=== PATIENT | female | born 1990 | race Caucasian/White ===

== ENCOUNTER 2020-07-16 16:30 | Emergency (ER) | payer OTHER, SELFPAY ==
--- NOTE | ~2020-07-16 | XR_ITS ---
EXAMINATION: XR chest 2V EXAM DATE: 07/16/2020 19:22 INDICATION: Dizziness, weakness. TECHNIQUE: Frontal and lateral projections of the chest obtained and reviewed. There is no prior meghana dy for comparison. FINDINGS: The lungs are clear. There are no pleural effusions. The cardiomediastinal silhouette is within normal limits. There is no pneumothorax suspected. The bones and soft tissues are unremarkab le. IMPRESSION: No acute cardiopulmonary findings. Reviewed, dictated and finalized at location A. [facility] [employer] [employer]
[2020-07-16 16:45] VITALS: BP 138/92; PULSE 107; RESP 19; TEMP 36.7; O2SAT 100
--- NOTE | 2020-07-16 17:11 | ECG_ITS ---
Measurements Intervals [place] Rate: 92 P: 41 NC: 141 QRS: 2 QRSD: 91 T: -3 QT: 386 QTc: 479 Interpretive Statements SINUS RHYTHM POSSIBLE LEFT VENTRICULAR HYPERTROPHY MINIMAL Q WAVES- HIGH LATERAL LEADS NONSPECIFIC ST & T-WAVE ABNORMALITY- INF/LAT LEADS BASELINE ARTIFACT- I, II, AVR, AVL, AVF, V4 BORDERLINE ECG Electronically Signed On 07-16-2020 21:38:37 [employer] by Chadd Burns D.O.
--- NOTE | 2020-07-16 17:12 | ED.DIZZY ---
HPI - Dizziness General Chief Complaint: Dizziness <Caleb Aly DO - Last Filed: 07/16/20 18:55> Stated Complaint: Lightheaded/ dizziness <Caleb Aly DO - Last Filed: 07/16/20 18:55> Time Seen by Provider: 07/16/20 16:50 <Caleb Aly DO - Last Filed: 07/16/20 18:55> Source: patient, RN notes reviewed and old records reviewed <Caleb Aly DO - Last Filed: 07/16/20 18:55> History of Present Illness HPI Narrative: 30-year-old female presents to emergency department for intermittent lightheadedness since . Patient states she has never had this in the past before. Has not taken anything for symptoms so far. Patient states that the lightheadedness is worse with certain movements. Denies nausea or vomiting. No fever or chills. No chest pain or shortness of breath. Does report having some intermittent right-sided flank pain. No dysuria. Her last menstrual period was in April. <Caleb Aly DO - Last Filed: 07/16/20 18:55> Related Data Home Medications: Home Medications Medication Instructions Recorded Confirmed metformin 1,000 mg PO BID 07/16/20 <Caleb Aly DO - Last Filed: 07/16/20 18:55> Allergies/Adverse Reactions: Allergies Allergy/AdvReac Type Severity Reaction Status Date / Time No Known Allergies Allergy Verified 07/16/20 16:51 <Caleb Aly DO - Last Filed: 07/16/20 18:55> Review of Systems Review of Systems: Narrative: CONSTITUTIONAL: Denies fever, chills, or sweats. EYES: Denies visual changes, redness, or discharge. ENT: Denies rhinorrhea, congestion, sore throat, or otalgia. CARDIOVASCULAR: Denies chest pain, palpitations, or edema. RESPIRATORY: Denies cough or dyspnea. GASTROINTESTINAL: Denies abdominal pain, nausea, vomiting, or diarrhea. GENITOURINARY: Denies dysuria or hematuria. SKIN: Denies rash or itching. MUSCULOSKELETAL: Denies back pain, joint pain, or myalgia. NEUROLOGIC: Denies headache, numbness, or weakness. Reports dizziness PSYCHIATRIC: Denies anxiety or depression. <Caleb Aly DO - Last Filed: 07/16/20 18:55> All systems reviewed & are unremarkable except as noted in HPI and below (ROS) <Caleb Aly DO - Last Filed: 07/16/20 18:55> PMFSH Social History Social History: Social History Gender identity (if verbalized by the patient): Female <Caleb Aly DO - Last Filed: 07/16/20 18:55> Exam Narrative: Exam Narrative: GENERAL: Well-appearing, well-nourished, and in no acute distress. HEAD: Normocephalic, atraumatic. EYES: PERRLA and EOMI. ENT: Nares clear, no rhinorrhea or epistaxis. Mucous membranes moist. NECK: Supple. CHEST: Clear to auscultation. No respiratory distress. HEART: Regular rate and rhythm. No murmur heard. Normal peripheral pulses. ABDOMEN: Soft, nontender, nondistended, normal active bowel sounds. EXTREMITIES: Normal range of motion. No edema. SKIN: Warm, dry, no rash. NEURO: No focal deficits. Alert and oriented x3. Negative Middle Bass-Hallpike. PSYCH: Normal mood and affect. <Caleb Aly DO - Last Filed: 07/16/20 18:55> Course Course Emergency Course: 1824 -reevaluated patient, no new complaints. 1899 - care transferred, pending fluids, chest x-ray, and re-evaluation. <Caleb Aly DO - Last Filed: 07/16/20 18:55> Vital Signs Vital signs: Vital Signs Temperature 36.7 C 07/16/20 16:45 Pulse Rate 107 H 07/16/20 16:45 Respiratory Rate 19 07/16/20 16:45 Blood Pressure 138/92 H 07/16/20 16:45 Pulse Oximetry 100 07/16/20 16:45 Temperature 36.7 C 07/16/20 16:45 Pulse Rate 101 H 07/16/20 19:54 Respiratory Rate 14 07/16/20 19:54 Blood Pressure 109/72 07/16/20 19:54 Pulse Oximetry 97 07/16/20 19:54 <Caleb Aly, DO - Last Filed: 07/16/20 18:55> Vital Signs Temperature 36.7 C 07/16/20 16:45 Pulse Rate 107 H 06/28
[2020-07-16 17:22] LABS: Basophils Absolute Auto 0.1 K/mm3 (0.0-0.1); Basophils Percent Auto 0.7 % (0.2-1.2); Eosinophils Absolute Auto 0.2 K/mm3 (0-0.3); Eosinophils Percent Auto 2.3 % (0-4.4); Hemoglobin 12.1 g/dL (12.0-15.0); Immature Granulocyte Absolute 0.05 K/mm3 (0.00-0.031); Immature Granulocyte Percent A 0.5 % (0-0.5); Lymphocytes Absolute Auto 2.32 K/mm3 (0.9-3.2); Lymphocytes Percent Auto 21.9 % (18.3-44.2); Mean Corpuscular HGB Conc 31.8 g/dl (32-36); Mean Corpuscular Hemoglobin 26.5 pg (26-34); Mean Corpuscular Volume 83.2 fl (80-100); Mean Platelet Volume 9.7 fl (7.4-10.4); Monocytes Absolute Auto 0.6 K/mm3 (0.1-0.6); Monocytes Percent Auto 5.6 % (2.6-8.5); Neutrophils Absolute Auto 7.3 K/mm3 (1.3-6.7); Platelet Count Result 400 k/mm3 (150-375); Red Blood Count 4.57 M/mm3 (4.2-5.4); Red Cell Distribution Width 14.7 % (11.5-14.5); White Blood Count 10.6 K/mm3 (4.5-10.0)
[2020-07-16 17:27] LABS: Add Urine Microscopic? YES; Appearance Urine Clear (Clear); Bacteria Urine Trace /hpf; Bilirubin Urine Negative (Negative); Blood Urine Negative (Negative); Color Urine Yellow (Yellow); Glucose Urine UA Negative (Negative); Ketones Urine Negative (Negative); Leukocyte Esterase Ur Trace LEU/UL (Negative); Mucus Urine Heavy /lpf; Nitrate Urine Negative (Negative); Protein Urine 1+ mg/dL (Negative); Specific Grav Ur 1.023 (1.001-1.035); Squamous Epithelial Cell Urine Many /hpf (Few); Urobilinogen Urine Negative mg/dL (<2.0)
[2020-07-16 17:35] LABS: Alanine Aminotransferase 32 U/L (4-35); Albumin Level 4.1 g/dL (3.5-5.1); Alkaline Phosphatase 75 U/L (38-126); Anion Gap 5 mmol/L (8-16); Aspartate Amino Transferase 25 U/L (14-36); Bilirubin,Total 0.4 mg/dL (0.2-1.3); Blood Urea Nitrogen 7 mg/dL (7-17); Calcium 9.2 mg/dL (8.4-10.2); Carbon Dioxide 29 mmol/L (22-30); Chloride 105 mmol/L (98-107); Estimated CRCL calculation 123 ml/min; Estimated Glomerular Filt Rate > 60; Glucose 91 mg/dL (65-105); Magnesium 1.8 mg/dL (1.6-2.3); Potassium 3.5 mmol/L (3.4-5.0); Sodium 139 mmol/L (137-145)
[2020-07-16] MEDS: SODIUM CHLORIDE 0.9% IV 1,000 ML 999 ML IV CONT (17:48)
[2020-07-16 17:52] LABS: Lipase 56 U/L (23-300)
[2020-07-16] MEDS: KETOROLAC 15 MG/ML VIAL (*BKC) IV PUSH (18:33)
[2020-07-16 19:54] VITALS: BP 109/72; PULSE 101; RESP 14; O2SAT 97
[2020-07-16 20:58] VITALS: BP 112/67; PULSE 105; RESP 20; O2SAT 97
[2020-07-18 19:32] LABS: SARS-CoV-2 RNA PCR Negative
== END 2020-07-16 21:01 | disposition home or self-care (01) ==
PROVIDERS: Emergency Medicine; Emergency Provider Emergency Medicine; PCP Physician Assistant
DX: R42 Dizziness and giddiness (principal); N30.00 Acute cystitis without hematuria; Z20.822 Contact with and (suspected) exposure to COVID-19; R94.31 Abnormal electrocardiogram [ECG] [EKG]
CPT/HCPCS: 36415; 71046; 80053; 81001; 81025; 83690; 83735; 84443; 85025; 87086; 87088; 93005; 96361; 96374; 99284; C9803; J1885; J7030; U0003; U0005

== ENCOUNTER 2024-04-15 08:52 | Outpatient (CLI) | payer OTHER, SELFPAY ==
--- NOTE | 2024-04-15 11:15 | NEURO_ITS ---
Impression: # Complains of numbness of right hand. Non-diabetic. # Right Carpal Tunnel Syndrome. # No ulnar neuropathy. # Normal needle/EMG exam. Nerve Conduction Studies Anti Sensory Summary Table Stim Site NR Peak (ms) P-T Amp (?V) Site1 Site2 Delta-P (ms) Dist (cm) Richard (m/s) Left Median Anti Sensory (2-3nd Digit) Wrist 3.4 30.6 Wrist 2-3nd Digit 3.4 14.0 41 Wrist 3.5 36.2 Wrist 2-3nd Digit 3.4 14.0 41 Right Median Anti Sensory (2-3nd Digit) Wrist 4.9 59.0 Wrist 2-3nd Digit 4.9 14.0 29 Wrist 5.3 34.9 Wrist 2-3nd Digit 4.9 14.0 29 Left Radial Anti Sensory (Base 1st Digit) Wrist 1.6 38.0 Wrist Base 1st Digit 1.6 0.0 Right Radial Anti Sensory (Base 1st Digit) Wrist 2.1 21.4 Wrist Base 1st Digit 2.1 0.0 Left Ulnar Anti Sensory (5th Digit) Wrist 1.8 59.1 Wrist 5th Digit 1.8 14.0 78 Right Ulnar Anti Sensory (5th Digit) Wrist 2.0 84.6 Wrist 5th Digit 2.0 14.0 70 Motor Summary Table Stim Site NR Onset (ms) O-P Amp (mV) Site1 Site2 Delta-0 (ms) Dist (cm) Richard (m/s) Left Median Motor (Abd Poll Brev) Wrist 3.8 2.2 Elbow Wrist 4.3 26.0 60 Elbow 8.1 2.8 Right Median Motor (Abd Poll Brev) Wrist 4.9 1.0 Elbow Wrist 4.6 26.0 57 Elbow 9.5 1.3 Left Ulnar Motor (Abd Dig Minimi) Wrist 2.2 11.6 A Elbow Wrist 5.5 32.0 58 A Elbow 7.7 9.8 Right Ulnar Motor (Abd Dig Minimi) Wrist 2.9 7.9 A Elbow Wrist 4.7 27.0 57 A Elbow 7.6 6.8 F Wave Studies NR F-Lat (ms) L-R F-Lat (ms) Left Median (Mrkrs) (Abd Poll Brev) 27.11 1.60 Right Median (Mrkrs) (Abd Poll Brev) 28.71 1.60 Left Ulnar (Mrkrs) (Abd Dig Min) 26.25 0.23 Right Ulnar (Mrkrs) (Abd Dig Min) 26.48 0.23 EMG Side Muscle Nerve Root Ins Act Fibs Amp Dur Recrt Comment Right 1stDorInt Ulnar C8-T1 Nml Nml Nml Nml Nml Right Ext Indicis Radial (Post Int) C7-8 Nml Nml Nml Nml Nml Right Ext Digitorum Radial (Post Int) C7-8 Nml Nml Nml Nml Nml Right BrachioRad Radial C5-6 Nml Nml Nml Nml Nml Right PronatorTeres Median C6-7 Nml Nml Nml Nml Nml Right Abd Poll Brev Median C8-T1 Nml Nml Nml Nml Nml Right ABD Dig Min Ulnar C8-T1 Nml Nml Nml Nml Nml Left 1stDorInt Ulnar C8-T1 Nml Nml Nml Nml Nml Left Ext Indicis Radial (Post Int) C7-8 Nml Nml Nml Nml Nml Left Ext Digitorum Radial (Post Int) C7-8 Nml Nml Nml Nml Nml Left BrachioRad Radial C5-6 Nml Nml Nml Nml Nml Left PronatorTeres Median C6-7 Nml Nml Nml Nml Nml Left Abd Poll Brev Median C8-T1 Nml Nml Nml Nml Nml Left ABD Dig Min Ulnar C8-T1 Nml Nml Nml Nml Nml MTDD
== END 2024-04-15 08:53 | disposition home or self-care (01) ==
LOC: ANHNEURO 08:55
PROVIDERS: PCP Physician Assistant; Visit Provider Emergency Medicine
DX: G56.01 Carpal tunnel syndrome, right upper limb (principal)
CPT/HCPCS: 95886; 95911